=== PATIENT | male | born 1945 | race Caucasian/White ===

== ENCOUNTER → 2017-10-15 | Outpatient (CLI) | payer OTHER | END | disposition home or self-care (01) | LOC: CDC 14:00 | DX: Z01.810 Encounter for preprocedural cardiovascular examination (principal); N20.0 Calculus of kidney; I44.4 Left anterior fascicular block; I45.10 Unspecified right bundle-branch block; R00.1 Bradycardia, unspecified | CPT/HCPCS: 93000 ==

== ENCOUNTER 2017-10-29 08:36 | Day surgery (SDC) | payer OTHER ==
[~2017-10-29] VITALS: Ht 175.3 cm; Wt 95.3 kg
[~2017-10-29 08:36] MED LIST: ALDACTONE25 MG PO; ATARAX,VISTARIL25 MG PO; CARDURA8 MG PO; COZAAR100 MG PO; CRESTOR10 MG PO; ENDOCET 5-3251 EACH PO; LITE COAT ASPI325 M1 PO; NEURONTIN300 MG PO; OCREVUS300 MG/10 IV; TOPROL XL100 MG PO; TYLENOL REGULA325 MG PO; VESICARE10 MG PO; ZOFRAN4 MG PO; ZOLOFT50 MG PO
[2017-10-29 09:33] VITALS: BP 158/74
[2017-10-29 14:10] VITALS: BP 177/82
[2017-10-29 14:35] VITALS: BP 164/87
== END 2017-10-29 15:05 | disposition home or self-care (01) ==
LOC: SDC 08:36
PROVIDERS: Urology
DX: N13.2 Hydronephrosis with renal and ureteral calculous obstruction (principal); Z87.442 Personal history of urinary calculi; I10 Essential (primary) hypertension; E78.5 Hyperlipidemia, unspecified; E26.9 Hyperaldosteronism, unspecified; I69.354 Hemiplegia and hemiparesis following cerebral infarction affecting left non-dominant side; G35 Multiple sclerosis; D50.9 Iron deficiency anemia, unspecified; G47.30 Sleep apnea, unspecified; N40.1 Benign prostatic hyperplasia with lower urinary tract symptoms; N39.41 Urge incontinence; R39.15 Urgency of urination; I51.9 Heart disease, unspecified; Z79.82 Long term (current) use of aspirin; Z87.891 Personal history of nicotine dependence; Z82.49 Family history of ischemic heart disease and other diseases of the circulatory system
CPT/HCPCS: 74000; 74420; 82365 90; C1758; C1769; C2625; J0690; J1100; J2405; J3010